=== PATIENT | female | born 1960 | race Caucasian/White ===

== ENCOUNTER → 2019-06-13 | Outpatient (CLI) | payer BC ==
[~2019-06-13] MED LIST: ACET-704 PO; ACET325T9 PO; CRESTOR20 MG PO; DOCU100C28 PO; LEVO25TA4 PO; LISI-334 PO; MAGN400C PO; METH750T2 PO; METO-239 PO; NORE5TAB3 PO; PANT40TA77 PO; VENL75TA PO; ZINC50TA2 PO
[2019-06-13 16:08] LABS: BASO # 0.1 x10^3/uL (0.0-0.2); BASO % 1 % (0-3); EOS # 0.2 x10^3/uL (0.0-0.7); EOS % 3 % (0-3); HEMATOCRIT 41.1 % (36.0-47.0); LYMPH # 1.8 x10^3/uL (1.0-4.8); LYMPH % 28 % (24-48); MEAN CORPUSCULAR HEMOGLOBIN 32 pg (25-35); MEAN CORPUSCULAR HGB CONC 34 g/dL (31-37); MEAN CORPUSCULAR VOLUME 95 fL (79-100); MONO # 0.6 x10^3/uL (0.0-1.1); MONO % 9 % (0-9); NEUT # 3.8 x10^3/uL (1.8-7.7); NEUT % 60 % (31-73); PLATELET COUNT 273 x10^3/uL (140-400); RED BLOOD COUNT 4.32 x10^6/uL (3.50-5.40); RED CELL DISTRIBUTION WIDTH 12.3 % (11.5-14.5); WHITE BLOOD COUNT 6.4 x10^3/uL (4.0-11.0)
[2019-06-13 16:29] LABS: ALBUMIN 3.8 g/dL (3.4-5.0); ALBUMIN/GLOBULIN RATIO 1.1 (1.0-1.7); CREATININE 0.7 mg/dL (0.6-1.0); GFR 85.9; POTASSIUM 3.6 mmol/L (3.5-5.1); TOTAL BILIRUBIN 0.2 mg/dL (0.2-1.0); TOTAL PROTEIN 7.4 g/dL (6.4-8.2)
== END | disposition home or self-care (01) ==
LOC: SURGPAT 06-10 12:35
PROVIDERS: ATTEND Neurological Surgery
DX: Z01.812 Encounter for preprocedural laboratory examination (principal); M48.02 Spinal stenosis, cervical region; M54.12 Radiculopathy, cervical region
CPT/HCPCS: 36415; 80053; 82306; 85025; 87641

== ENCOUNTER 2019-06-23 06:59 | Observation (INO) | payer BC ==
--- NOTE | 2019-06-22 17:12 | HP ---
ADMIT DATE: 06/23/2019 DATE OF SURGERY: 06/23/2019 HISTORY OF PRESENT ILLNESS: The patient is a pleasant 58-year-old who few years ago underwent ACDF and did well. Over the last few months, she has noted increasing neck pain along with pain, which radiates to both of her arms. The right side is more affected than the left. She notes tingling in the fingers of both of her hands. The problem has been present for years, but has been getting worse over the last year or two. She had physical therapy for this. She said this was not very beneficial and in fact it causes more pain for her. She rates her overall pain as a 3/10. Activities markedly increase her pain. Lifting and bending also increase her pain. She has been taking Tylenol and Advil limiting her activities. She has not noticed specific weakness or numbness. PAST MEDICAL HISTORY: Arthritis, asthma and migraines, head or neck injury, hypertension, kidney disease. PAST SURGICAL HISTORY: Bilateral knees, bilateral carpal tunnel release, thyroid, tubal ligation, ACDF, lumbar fusion. FAMILY HISTORY: Heart disease, hypertension, migraine, spine trouble. SOCIAL HISTORY: . Exercises daily. Denies substance abuse or alcohol and tobacco use. Drinks soda daily. ALLERGIES: SULFA AND LATEX. CURRENT MEDICATIONS: Fish oil, Crestor, Levoxyl, lisinopril, Effexor, Tylenol No. 3. REVIEW OF SYSTEMS: A 12-point review of systems was obtained and is noncontributory except for that mentioned above. PHYSICAL EXAMINATION: NEUROSURGERY EXAMINATION: GENERAL APPEARANCE: Alert, pleasant, no acute distress. HEAD: Normocephalic and atraumatic. SKIN: Warm and dry. NECK AND THYROID: Jpny-wx-nxdiyrbr tenderness with palpation of posterior cervical region, well-healed incision. MUSCULOSKELETAL: Cervical paraspinal muscle bulk is normal, restricted range of motion of the cervical spine, normal range of motion of the upper extremities bilaterally. EXTREMITIES: No clubbing, cyanosis or edema. NEUROLOGIC: Alert and oriented x 3, normal recent and remote memory. Strength 5/5 in bilateral upper and lower extremities, sensory was intact to light touch in the upper and lower extremities except for decrease in light touch involving the right hand, especially the right thumb. Reflexes are present and symmetric in the upper and lower extremities bilaterally except for an absent right biceps reflex, normal gait. IMAGING: I reviewed her cervical MRI scan. There is interbody fusion at C6-C7. At C5-C6 there are degenerative changes moderately severe bilateral foraminal narrowing as well as moderate central canal stenosis. At C4-C5, there is a left-sided neural foraminal narrowing. ASSESSMENT: 1. Spinal stenosis, cervical region. 2. Radiculopathy, cervical region. PLAN: I believe the problems at C5- C6 are responsible for her pain. My recommendation is that she undergo an anterior cervical discectomy and fusion at this level. I discussed with her the surgery and the risks as well as expected postoperative course. She understands. She would like to go ahead. We will make the arrangements. PEDRO RENE MD DR: SARAHI/sowmya JOB#: [id number] / [id number] NEGRO
[~2019-06-23] VITALS: Ht 167.6 cm; Wt 82.5 kg
[2019-06-23] VITALS (10 sets, daily range): BP systolic 116–140; BP diastolic 66–85
[~2019-06-23 06:59] MED LIST changes: -ACET-704 PO; +BACITRACIN 50,000 UNIT in IV NORMAL SALINE 1000ML BAG 1,000 ML IRR ONE; +BUPIVACAINE-EPI 0.5%-1:200000 MPF 30 ML VIAL. INJ ONE; -DOCU100C28 PO; -METH750T2 PO; -PANT40TA77 PO
[2019-06-23] MEDS ORDERED: ONDANSETRON PF 4 MG/2 ML VIAL. IV PRN ×2 (07:00→12:15)
[2019-06-23] MEDS ORDERED: fentaNYL PF VIAL 100 MCG/2 ML VIAL IV PRN (07:00)
[2019-06-23] MEDS ORDERED: HYDROmorphone 2 MG/ML VIAL IV PRN (07:00)
[2019-06-23] MEDS ORDERED: PROCHLORPERAZINE 10 MG/2 ML VIAL. IV PRN (07:00)
[2019-06-23] MEDS ORDERED: PANT40TA77 PO (07:26)
[2019-06-23] MEDS ORDERED: GELATIN SPONGE SIZE 12-7MM SPONGE. ONE ×2 (07:27)
[2019-06-23] MEDS ORDERED: THROMBIN TOPICAL 20,000 UNIT SPRAY.SYRN KIT TP ONE (07:27)
[2019-06-23] MEDS ORDERED: PROPOFOL 50 ML IV ONE ×2 (07:31→10:06)
[2019-06-23] MEDS ORDERED: REMIFENTANIL 2 MG VIAL. IV ONE (07:31)
[2019-06-23] MEDS ORDERED: LIDOCAINE 2% PF 5 ML VIAL. ONE (07:31)
[2019-06-23] MEDS ORDERED: PROPOFOL 20 ML IV ONE (07:31)
[2019-06-23] MEDS ORDERED: fentaNYL PF VIAL 100 MCG/2 ML VIAL ONE (07:31)
[2019-06-23] MEDS ORDERED: SUCCINYLCHOLINE 200 MG/10 ML VIAL. ONE (07:32)
[2019-06-23] MEDS ORDERED: ROCURONIUM 50 MG/5 ML VIAL. ONE (07:32)
[2019-06-23] MEDS ORDERED: 0.9 % SODIUM CHLORIDE 20 ML VIAL. IJ ONE (07:33)
[2019-06-23] MEDS: IV RINGERS,LACTATED 1000ML 1,000 ML IV SCH ×2 (07:37→12:09)
[2019-06-23] MEDS ORDERED: ceFAZolin 2GM PREMIX 2 GM/50 ML BAG IV ONE (08:00)
[2019-06-23] MEDS ORDERED: SCOPOLAMINE 1.5MG PATCH. TD ONE (09:00)
[2019-06-23] MEDS ORDERED: DEXAMETHASONE SOD PHOS 20 MG/5 ML VIAL. ONE (09:16)
[2019-06-23] MEDS ORDERED: FAMOTIDINE 20 MG/2 ML VIAL ONE (09:16)
[2019-06-23] MEDS ORDERED: DESFLURANE > 120 MINUTES IH ONE (09:16)
[2019-06-23] MEDS ORDERED: ONDANSETRON PF 4 MG/2 ML VIAL. ONE (09:16)
[2019-06-23] MEDS ORDERED: PHENYLEPHRINE in 0.9% NACL PF 1 MG/10 ML SYRINGE. IV ONE (09:30)
--- NOTE | 2019-06-23 12:05 | OP ---
DATE OF SURGERY: 06/23/2019 PREOPERATIVE DIAGNOSIS: Foraminal narrowing with cervical radiculopathy, C5-C6. POSTOPERATIVE DIAGNOSIS: Foraminal narrowing with cervical radiculopathy, C5-6. OPERATION PERFORMED: Anterior cervical discectomy C5-C6, anterior cervical interbody fusion, C5-C6 with allograft and autograft bone, anterior cervical plate, C5-C6. The operation was done with multimodality monitoring including EMG, SSEP, NIMS, motor evoked potentials. We also used fluoroscopy, microscopic dissection. SURGEON: Cheo Rene M.D. KIER OPERATOR: NABILA De Souza assisted with the surgery. She assisted with all aspects of the operation. OPERATIVE INDICATIONS: The patient is a pleasant 58-year-old who developed intractable neck and bilateral arm pain, worse on the right side. On imaging studies had significant bilateral neural foraminal narrowing at C5-C6. She also had a previous operation at C6-C7 with an anterior fusion and then developed these problems at C5-C6. At C4-C5, there was left-sided neural foraminal narrowing. At this point, I felt that it is most prudent not to add 2 more levels and give her a 3-level fusion, which would I thought would create some disability, but to decompress and fuse C5-C6. I explained to her that if she develops problems in the future related to C4-C5 that I could operate posteriorly and decompress at that level. She understood the surgery and the risks, she understood the technique of the operation, she wished to go ahead. DESCRIPTION OF PROCEDURE: Following general endotracheal anesthesia, she was positioned supine with the neck gently extended on a donut. The anterior cervical region was then prepped and draped in the standard fashion. JULIANA hose and AV impulse boots were applied for DVT prophylaxis. A microscope was draped. Fluoroscopy was draped and brought into the field. Monitoring was established. Ancef 2 grams was given less than 1 hour prior to initiation of surgery. Using fluoroscopic guidance, an incision was made from the midline around to the right side in a previous incision. I dissected down through skin and subcutaneous tissue. I dissected around the medial aspect of sternocleidomastoid and carotid artery sheath after sharply dividing the platysma. There was considerable scarring present. I gently retracted the trachea and esophagus contralaterally and placed six 14 mm pins in C5 and C6. I placed the lateral [place] retractors in the longus colli muscle and brought in the microscope during this time. I incised the anterior annulus with #11 blade. I performed a discectomy with pituitary rongeurs. The disc was quite degenerated and tenacious and I drilled much of this away as well as using the 1 and 2 mm micro Kerrison's posteriorly. There was a large amount of osteophytic spurring which I drilled away and then I opened the annulus and ligament and exposed posteriorly. I made sure that the neural foramina were open bilaterally. I did scrape cartilaginous endplate carefully. I placed a straight 6 mm cage, which was packed with allograft and autograft bone. I placed a 12 mm Cam[place] anterior plate with four 14 mm screws, which I then placed and locked. I have irrigated copiously with antibiotic solution. The monitoring was excellent throughout. The wound was closed in layers with absorbable suture. I did Valsalva and assured myself of perfect hemostasis. Prior to placement of the cage, I again assured myself of perfect hemostasis in the operative bed and at the end of the operation, I felt that I had an excellent decompression at this level and I felt that the surgery gone very well. CHEO RENE MD DR: SARAHI/sowmya JOB#: [id number] / [id number] NEGRO
[2019-06-23] MEDS: MORPHINE SULFATE 2 MG/ML VIAL. IV PRN ×4 (12:10→13:04)
[2019-06-23] MEDS: fentaNYL PF VIAL 100 MCG/2 ML VIAL IV PRN ×2 (12:11→12:26)
[2019-06-23] MEDS ORDERED: diphenhydrAMINE HCL 25 MG CAPSULE PO PRN (12:15)
[2019-06-23] MEDS ORDERED: 0.9 % SODIUM CHLORIDE 10 ML DISP.SYRIN. IV PRN (12:15)
[2019-06-23] MEDS ORDERED: HYDROcodone/APAP 5/325MG 1 TAB TABLET PO PRN (12:15)
[2019-06-23] MEDS ORDERED: ACETAMINOPHEN 325 MG TABLET. PO PRN (12:15)
[2019-06-23] MEDS ORDERED: METHOCARBAMOL 750 MG TABLET PO PRN (12:15)
[2019-06-23] MEDS ORDERED: CALCIUM CARBONATE 500 MG TAB.CHEW PO PRN (12:15)
[2019-06-23] MEDS ORDERED: MAGNESIUM HYDROXIDE 2,400 MG/30 ML ORAL.SUSP. PO PRN (12:15)
[2019-06-23] MEDS ORDERED: fentaNYL PF VIAL 100 MCG/2 ML VIAL IVP PRN (12:15)
[2019-06-23] MEDS ORDERED: MAG HYDROX/ALUMINUM HYD/SIMETH 30 ML ORAL.SUSP PO PRN (12:15)
--- NOTE | 2019-06-23 13:58 | NUR ---
Admitted from PACU per bed, alert/oriented, discomfort level 5/10, dressing clean dry & intact to anterior neck, soft cervical collar in place, bilateral upper extremity commercial underwriter & sensation intact, oriented to surroundings, family members at bedside, call light within reach HOB elevated
[2019-06-23] MEDS: VENLAFAXINE 75 MG TABLET. PO SCH ×2 (14:00→21:00)
[2019-06-23] MEDS ORDERED: POTASSIUM CL 20MEQ D5-0.45NACL 1,000 ML IV SCH (15:00)
[2019-06-23] MEDS: HYDROcodone/APAP 5/325MG 1 TAB TABLET PO PRN ×2 (15:12→21:15)
[2019-06-23] MEDS: ceFAZolin SODIUM IV Push 1 GM VIAL. IVP SCH (17:29)
[2019-06-23] MEDS: ACETAMINOPHEN 325 MG TABLET. PO PRN (19:42)
[2019-06-23] MEDS ORDERED: ATORVASTATIN CALCIUM 40 MG TABLET. PO SCH (21:00)
[2019-06-23] MEDS ORDERED: ZINC SULFATE 220 MG CAPSULE. PO SCH (21:00)
[2019-06-23] MEDS: DOCUSATE SODIUM 100 MG CAPSULE. PO SCH (21:14)
[2019-06-24] MEDS: ceFAZolin SODIUM IV Push 1 GM VIAL. IVP SCH ×2 (02:17→10:06)
[2019-06-24] MEDS: ACETAMINOPHEN 325 MG TABLET. PO PRN (02:27)
[2019-06-24 02:54] VITALS: BP 124/71
--- NOTE | 2019-06-24 02:56 | NUR ---
Lortab making pt itchy. No rash seen. Benadryl and Tylenol given. Ambulating w/o difficulty. VSS.
[2019-06-24] MEDS ORDERED: LEVOTHYROXINE 25 MCG TABLET. PO SCH (06:00)
[2019-06-24 06:36] VITALS: BP 122/65
[2019-06-24] MEDS ORDERED: PANTOPRAZOLE 40 MG TABLET.DR. PO SCH (07:30)
[2019-06-24] MEDS: VENLAFAXINE 75 MG TABLET. PO SCH (08:40)
[2019-06-24] MEDS: DOCUSATE SODIUM 100 MG CAPSULE. PO SCH (08:40)
[2019-06-24] MEDS ORDERED: ACETAMINOPHEN/CODEINE 300/30MG TABLET. PO ONE (08:45)
[2019-06-24] MEDS ORDERED: METOPROLOL SUCC 24HR ER 50 MG TAB.ER.24H. PO SCH (09:00)
[2019-06-24] MEDS ORDERED: MAGNESIUM OXIDE 400 MG TABLET PO SCH (09:00)
--- NOTE | 2019-06-24 10:00 | NUR ---
No c/o at this time. Up and ambulating in room. Anxious to go home today. Cont. monitor.
[2019-06-24 11:35] VITALS: BP 122/72
[2019-06-24 11:41] VITALS: BP 122/72
[2019-06-24] MEDS ORDERED: METH750T2 PO (12:49)
[2019-06-24] MEDS ORDERED: DOCU100C28 PO (12:49)
[2019-06-24] MEDS ORDERED: ACET-704 PO (12:49)
--- NOTE | 2019-06-24 12:50 | DISCH ---
DISCHARGE INSTRUCTIONS Condition on Discharge Condition on Discharge: Stable Activity After Discharge Activity Instructions for Disc: Activity as tolerated, Avoid exertion Bathing Instructions: Shower-keep dressing dry Lifting Instructions after Dis: No heavy lifting, No pulling or pushing, Do not lift >10 pounds Diet after Discharge Additional Diet Restrictions: resume home diet Wound Incision Care Wound/Incision Care: Ice to area for comfort Other wound/incision instructi: may remove dressing tomorrow if dry, then may shower, no soaking Contacting the DRNela after DC Call your doctor for: Concerns you may have Follow-Up Follow up with: Dr. Rene's nurse in 2 weeks [phone] PEDRO RENE MD Jun 24, 2019 12:50
--- NOTE | 2019-06-24 13:25 | NUR ---
Discharge instructions given with prescriptions. Answered questions and concerns. Verbalized understanding. Pt discharged home accompanied by spouse.
--- NOTE | 2019-06-24 18:06 | PATHOLOGY ---
[facility] Accession Number: [id number] . 01 Material submitted: . vertebral column - CERVICAL DISC . 01 Clinical history: . Cervical stenosis, radiculopathy . 02 Diagnosis: Segments of cartilaginous tissue and bone, cervical disc: - Degenerative changes of cartilaginous tissue. (JPM:adriana; 06/24/2019) QMS 06/24/2019 1525 Local . 02 Comment: There is no evidence of an acute inflammatory process or malignancy. . 02 Electronically signed: . Fadi Flynn MD, Pathologist NPI- [id number] . 01 Gross description: . Received in formalin labeled "[place], [place]armaine, cervical disc," are several pieces of glistening, fibrous tissue measuring 2.5 x 1.3 x 0.3 cm in aggregate dimensions, containing small fragments of possible bone. The tissue is filtered and submitted entirely in cassette A1, following decalcification. (TSD; 06/23/2019) TOB/TOB 06/23/2019 1759 Local . 02 Pathologist provided ICD-10: M99.71, M54.12 . 02 CPT . 424405, [id number] Specimen Comment: A courtesy copy of this report has been sent to Specimen Comment: [phone]. Specimen Comment: Report sent to Performed at: 01 [facility] [address], [place] [id number] MD Erik Bailey MD Phone: [phone] Performed at: 02 [facility] [address] [place], [place] [id number] MD Fadi Flynn MD Phone: [phone]
== END 2019-06-24 13:25 | disposition home or self-care (01) ==
LOC: SURG 06:59 → 4 SOUTHEST 12:40
PROVIDERS: ADMIT Neurological Surgery; ATTEND Neurological Surgery
DX: M48.02 Spinal stenosis, cervical region (principal); M54.12 Radiculopathy, cervical region; J45.909 Unspecified asthma, uncomplicated; G43.909 Migraine, unspecified, not intractable, without status migrainosus; I10 Essential (primary) hypertension; Z88.2 Allergy status to sulfonamides
CPT/HCPCS: 20930; 20936; 22551; 22845; 22853; 76000; 88304; 88311; 96374; 96376; 97116; 97162; 97530; A7015; C1713; G0378; G0379; J0330; J0690; J0696; J0780; J1100; J2001; J2270; J2370; J2405; J2704; J3010; J3490; J7030; J7120; Q0163

== ENCOUNTER → 2019-08-10 | Outpatient (CLI) | payer BC ==
[~2019-08-10] MED LIST changes: +ACET-704 PO; -BACITRACIN 50,000 UNIT in IV NORMAL SALINE 1000ML BAG 1,000 ML IRR ONE; -BUPIVACAINE-EPI 0.5%-1:200000 MPF 30 ML VIAL. INJ ONE; +DOCU100C28 PO; +METH750T2 PO; +PANT40TA77 PO
--- NOTE | 2019-08-11 09:38 | RAD ---
2 view cervical spine series Clinical indications: Follow-up after cervical fusion. FINDINGS: Anterior cervical fusion with metallic surgical hardware and interbody disc space fusion device is seen at the C5-6 level. Alignment is normal and no discitis or lytic process is seen. There is degenerative disc space narrowing and endplate spurring at C3-4 and to a greater extent at C4-5. IMPRESSION: Anterior cervical fusion at C5-6. Degenerative cervical spondylosis at C3-4 and C4-5. Electronically signed by: Warren Chacon MD (08/11/2019 9:35 AM) [facility]
== END ==
LOC: RAD 13:17
PROVIDERS: ATTEND Neurological Surgery
DX: M47.812 Spondylosis without myelopathy or radiculopathy, cervical region (principal); M48.02 Spinal stenosis, cervical region; I10 Essential (primary) hypertension; E78.00 Pure hypercholesterolemia, unspecified; J45.909 Unspecified asthma, uncomplicated; Z98.1 Arthrodesis status
CPT/HCPCS: 72040